=== PATIENT | female | born 1945 | race African-American/Black ===

== ENCOUNTER 2017-02-17 19:53 | Emergency (ER) | payer MEDICARE, OTHER ==
[~2017-02-17] VITALS: Ht 167.6 cm; Wt 106.6 kg
--- NOTE | 2017-02-17 20:05 | NUR ---
PT A/OX4 BREATHING EFFORTLESSLY ON ROOM AIR, PT C/O N/V/D X 3 HOURS WITH A LITTLE ABD PAIN, PT FAMILY AT BEDSIDE, URINE COLLECTED AND SENT TO LAB, IV PLACED LABS DRAWN, PT ON MONITOR, MADE AWARE WILL CONTINUE TO MONITOR.
[2017-02-17] MEDS ORDERED: ONDANSETRON HCL/PF 4 MG/2 ML VIAL ONE (20:20)
[2017-02-17 20:24] LABS: BASOPHILS # (AUTO) 0.4 /CMM (0.0-0.2); BASOPHILS % (AUTO) 3.7 % (0.0-2.0); EOSINOPHILS # (AUTO) 0.2 /CMM (0.0-0.7); EOSINOPHILS % (AUTO) 1.9 % (0.0-6.0); HEMATOCRIT 39 % (33-45); HEMOGLOBIN 12.4 g/dL (11.5-14.8); LYMPHOCYTES # (AUTO) 1.3 /CMM (0.8-4.8); LYMPHOCYTES % (AUTO) 11.7 % (20.0-44.0); MEAN CORPUSCULAR HEMOGLOBIN 27 PG (26.0-33.0); MEAN CORPUSCULAR HGB CONC 32 g/dl (31.0-36.0); MEAN CORPUSCULAR VOLUME 84 fL (82-100); MONOCYTES # (AUTO) 0.6 /CMM (0.1-1.30); MONOCYTES % (AUTO) 5.2 % (2.0-12.0); NEUTROPHILS # (AUTO) 8.2 /CMM (1.8-8.9); NEUTROPHILS % (AUTO) 77.5 % (43.0-81.0); PLATELET COUNT (AUTO) 297 /CMM (150-450); RDW COEFFICIENT OF VARIATION 14.4 (11.5-15.0); RED BLOOD CELL COUNT(AUTO) 4.64 MIL/uL (4.0-5.2); WHITE BLOOD COUNT (AUTO) 10.7 K/uL (4.3-11.0)
[2017-02-17 20:28] LABS: APPEARANCE,URINE Clear (CLEAR); BILIRUBIN,URINE Negative (NEGATIVE); BLOOD, URINE Negative Ery/uL (NEGATIVE); COLOR,URINE Yellow (YELLOW); KETONES,URINE Negative (NEGATIVE); LEUKOCYTE ESTERASE ,URINE Negative (NEGATIVE); NITRITE, URINE Negative (NEGATIVE); PH,URINE 5.5 (5.0-8.0); PROTEIN,URINE 30 mg/dl (NEGATIVE); UGLUCOSE Negative (NEGATIVE); UROBILINOGEN,URINE 0.2 EU/dL (0.2)
[2017-02-17] MEDS ORDERED: ONDANSETRON HCL/PF 4 MG/2 ML VIAL IVP ONE (20:30)
[2017-02-17] MEDS ORDERED: IV NS 0.9% 1,000 ML BAG IV ONE (20:30)
[2017-02-17 20:33] LABS: CALCIUM, SERUM 8.2 mg/dL (8.5-10.1); CREATININE 1.5 mg/dL (0.6-1.3); POTASSIUM 4.4 mmol/L (3.5-5.1)
[2017-02-17 20:39] LABS: ALBUMIN 3.1 g/dL (3.4-5.0); BILIRUBIN,DIRECT 0.1 mg/dL (0.0-0.2); BILIRUBIN,TOTAL 0.4 mg/dL (0.2-1.0); TOTAL PROTEIN, SERUM 6.9 g/dL (6.4-8.2)
[2017-02-17 20:54] LABS: BACTERIA,URINE Rare /HPF (None Seen); RBC,URINE NONE SEEN /HPF (0-2); SQUAMOUS EPITHELIAL CELL,UR Few /HPF (None Seen); WBC,URINE NONE SEEN /HPF (0-3)
[2017-02-17] MEDS ORDERED: ALBUTEROL FS 2.5 MG/3 ML VIAL.NEB ONE (21:26)
[2017-02-17] MEDS ORDERED: ALBUTEROL FS 2.5 MG/3 ML VIAL.NEB NEB ONE (21:30)
[2017-02-17 22:07] VITALS: BP 118/74
--- NOTE | 2017-02-17 22:08 | NUR ---
Patient discharged to home in stable condition. Written and verbal after care instructions given. Patient verbalizes understanding of instruction.IV removed. Catheter intact and site benign. Pressure and 4x4 applied to site. No bleeding noted.
== END 2017-02-17 22:08 | disposition home or self-care (01) ==
LOC: ER 19:54
DX: R11.2 Nausea with vomiting, unspecified (principal); J98.01 Acute bronchospasm; R19.7 Diarrhea, unspecified; I10 Essential (primary) hypertension; K21.9 Gastro-esophageal reflux disease without esophagitis
CPT/HCPCS: 36415; 71010; 80048; 80076; 81001; 83690; 83735; 85025; 93005; 94640; 96361; 96374; 99285; A4606; J2405; J7030 ×2; 81000-TC; Z7610

== ENCOUNTER 2017-07-26 14:11 | Emergency (ER) | payer MEDICARE, OTHER ==
[~2017-07-26] VITALS: Ht 167.6 cm; Wt 90.7 kg
--- NOTE | 2017-07-26 15:25 | NUR ---
AAOX3, BIB FAMILY C/O ABDOMINAL DISCOMFORT AND DIARRHEA SINCE THIS AM. SKIN IS WARM AND DRY. RESP IS EVEN AND UNLABORED WITH NAD NOTED. AWAITING MD FOR EVAL.
[2017-07-26] MEDS ORDERED: ASPIRIN 325 MG TABLET PO ONE (15:30)
[2017-07-26] MEDS ORDERED: ONDANSETRON 4 MG TAB.RAPDIS PO ONE (15:30)
[2017-07-26] MEDS ORDERED: FUROSEMIDE 40 MG/4 ML VIAL IV ONE (15:30)
[2017-07-26] MEDS ORDERED: ONDANSETRON HCL/PF - ER 4 MG/2 ML VIAL IV ONE (15:30)
[2017-07-26 15:31] LABS: BASOPHILS % (AUTO) 0.5 % (0.0-2.0); EOSINOPHILS % (AUTO) 0.4 % (0.0-6.0); HEMATOCRIT 40 % (33-45); HEMOGLOBIN 13.3 g/dL (11.5-14.8); LYMPHOCYTES # (AUTO) 1.4 /CMM (0.8-4.8); MEAN CORPUSCULAR HEMOGLOBIN 28 PG (26.0-33.0); MEAN CORPUSCULAR HGB CONC 34 g/dl (31.0-36.0); MEAN CORPUSCULAR VOLUME 84 fL (82-100); MONOCYTES # (AUTO) 0.6 /CMM (0.1-1.30); MONOCYTES % (AUTO) 7.7 % (2.0-12.0); NEUTROPHILS # (AUTO) 5.6 /CMM (1.8-8.9); NEUTROPHILS % (AUTO) 72.4 % (43.0-81.0); PLATELET COUNT (AUTO) 271 /CMM (150-450); RDW COEFFICIENT OF VARIATION 14.9 (11.5-15.0); RED BLOOD CELL COUNT(AUTO) 4.71 MIL/uL (4.0-5.2); WHITE BLOOD COUNT (AUTO) 7.6 K/uL (4.3-11.0)
[2017-07-26] MEDS ORDERED: HYDROCODONE/APAP 5/325MG 1 EACH TABLET ONE (15:31)
[2017-07-26] MEDS ORDERED: FUROSEMIDE 20 MG/2 ML VIAL ONE (15:31)
[2017-07-26] MEDS ORDERED: ASPIRIN 325 MG TABLET ONE (15:31)
[2017-07-26] MEDS ORDERED: ONDANSETRON HCL/PF 4 MG/2 ML VIAL ONE (15:31)
[2017-07-26] MEDS: HYDROCODONE/APAP 5/325MG 1 EACH TABLET PO ONE ×2 (15:34→15:44)
[2017-07-26 15:41] LABS: CARBON DIOXIDE 30 mmol/L (21-32); CHLORIDE 106 mmol/L (98-107); CREATININE 1.7 mg/dL (0.6-1.3); GLUCOSE 120 mg/dL (74-106); POTASSIUM 3.9 mmol/L (3.5-5.1); SODIUM SERUM 139 mmol/L (136-145); UREA NITROGEN, BLOOD 18 mg/dL (7-18)
[2017-07-26 15:45] LABS: INR 0.94 (0.87-1.13); PROTHROMBIN TIME 9.8 SECS (9.5-12.7)
[2017-07-26 15:48] LABS: TROPONIN I < 0.017 ng/mL (0.00-0.056)
[2017-07-26 15:53] LABS: ALANINE AMINOTRANSFERASE 18 U/L (12-78); ALBUMIN 3.2 g/dL (3.4-5.0); ALKALINE PHOSPHATASE 75 U/L (46-116); ASPARTATE AMINOTRANSFERASE 21 U/L (15-37); B-TYPE NATRIURETIC PEPTIDE 271 PG/ML (0-125); BILIRUBIN,DIRECT 0.1 mg/dL (0.0-0.2); BILIRUBIN,TOTAL 0.3 mg/dL (0.2-1.0); TOTAL PROTEIN, SERUM 7.4 g/dL (6.4-8.2)
--- NOTE | 2017-07-26 18:52 | NUR ---
IV removed. Catheter intact and site benign. Pressure and 4x4 applied to site. No bleeding noted.Patient discharged to home in stable condition. Written and verbal after care instructions given. Patient verbalizes understanding of instruction.
[2017-07-26 18:53] VITALS: BP 114/53
--- NOTE | 2017-07-27 14:25 | NUR ---
LATE ENTRY: NORCO PULLED OUT BY YOSELYN WAS REFUSED AND HE WASTED IT BUT FORGOT TO DOCUMENT IN THE OMNICEL DUE TO A CODE BLUE THAT OCCURED AT THAT TIME
== END 2017-07-26 18:54 | disposition home or self-care (01) ==
LOC: ER 14:13
DX: R60.0 Localized edema (principal); I10 Essential (primary) hypertension; Z86.73 Personal history of transient ischemic attack (TIA), and cerebral infarction without residual deficits; Z90.89 Acquired absence of other organs
CPT/HCPCS: 36415; 71045; 80048; 80076; 83880; 84484; 85025; 85730; 93005; 93970; 96374; 96375; 99285; A4606; J1940; J2405 ×2; Z7610

== ENCOUNTER 2020-11-10 13:22 | Emergency (ER) | payer MEDICARE, OTHER ==
[~2020-11-10] VITALS: Ht 167.6 cm; Wt 113.4 kg
[2020-11-10 13:39] VITALS: BP 155/82
[2020-11-10] MEDS ORDERED: CEPH250C PO (15:01)
--- NOTE | 2020-11-10 15:15 | NUR ---
Patient discharged to home in stable condition. Written and verbal after care instructions given. Patient verbalizes understanding of instruction. The patient left ER in stable condition.
== END 2020-11-10 15:15 | disposition home or self-care (01) ==
LOC: ER 13:24
DX: S61.206A Unspecified open wound of right little finger without damage to nail, initial encounter (principal); I10 Essential (primary) hypertension; Z86.73 Personal history of transient ischemic attack (TIA), and cerebral infarction without residual deficits; Z98.890 Other specified postprocedural states; Z79.899 Other long term (current) drug therapy; W01.0XXA Fall on same level from slipping, tripping and stumbling without subsequent striking against object, initial encounter; Y93.89 Activity, other specified; Y92.89 Other specified places as the place of occurrence of the external cause; Y99.8 Other external cause status
CPT/HCPCS: 73140; 99283; A4649; A6403

== ENCOUNTER 2022-06-23 17:07 | Inpatient (IN) | payer MEDICARE, OTHER ==
[~2022-06-23] VITALS: Ht 162.6 cm; Wt 113.0 kg
[~2022-06-23 17:07] MED LIST: CEPH250C PO
--- NOTE | 2022-06-23 17:13 | NUR ---
MADYSON (GRANDDAUGHTER) [phone]
--- NOTE | 2022-06-23 18:00 | NUR ---
BIBRA FROM HOME, PER EMS. DIARRHEA. PLACED ON BED, AAOX2, BREATHING UNLABORED SATURATING AT 97% WITH 5LIT 02 VIA NC.
--- NOTE | 2022-06-23 18:15 | NUR ---
URINE COLLECTED AND SENT TO LAB
--- NOTE | 2022-06-23 18:15 | NUR ---
COVID SWAB DONE AND SENT TO LAB
--- NOTE | 2022-06-23 18:19 | NUR ---
TAKEN TO CT VIA EV
[2022-06-23 19:27] LABS: BILIRUBIN,URINE NEGATIVE (NEGATIVE); COLOR,URINE YELLOW (YELLOW); LEUKOCYTE ESTERASE ,URINE 2+ (NEGATIVE); NITRITE, URINE NEGATIVE (NEGATIVE); PROTEIN,URINE 1+ mg/dl (NEGATIVE); UGLUCOSE NEGATIVE (NEGATIVE); UROBILINOGEN,URINE 0.2 EU/dL (0.2)
[2022-06-23 19:46] LABS: BACTERIA,URINE Moderate /HPF (None Seen); RBC,URINE 21-50 /HPF (0-2)
[2022-06-23 19:47] LABS: SQUAMOUS EPITHELIAL CELL,UR Moderate /HPF (None Seen); YEAST,URINE Moderate /HPF (None Seen)
[2022-06-23 19:48] LABS: BASOPHILS % (AUTO) 0.3 % (0.0-2.0); EOSINOPHILS % (AUTO) 0.2 % (0.0-6.0); HEMATOCRIT 36 % (33-45); HEMOGLOBIN 11.5 g/dL (11.5-14.8); LYMPHOCYTES # (AUTO) 0.6 K/uL (0.8-4.8); LYMPHOCYTES % (AUTO) 5.3 % (20.0-44.0); MEAN CORPUSCULAR HGB CONC 32 g/dl (31.0-36.0); MEAN CORPUSCULAR VOLUME 89 fL (82-100); MONOCYTES # (AUTO) 0.8 K/uL (0.1-1.30); MONOCYTES % (AUTO) 7.3 % (2.0-12.0); NEUTROPHILS # (AUTO) 9.9 K/uL (1.8-8.9); NEUTROPHILS % (AUTO) 86.9 % (43.0-81.0); PLATELET COUNT (AUTO) 214 K/uL (150-450); RED BLOOD CELL COUNT(AUTO) 4.04 MIL/uL (4.0-5.2); WHITE BLOOD COUNT (AUTO) 11.4 K/uL (4.3-11.0)
[2022-06-23 19:54] LABS: CALCIUM, SERUM 8.9 mg/dL (8.5-10.1); CARBON DIOXIDE 27 mmol/L (21-32); CHLORIDE 107 mmol/L (98-107); CREATININE 1.9 mg/dL (0.6-1.3); GLUCOSE 105 mg/dL (74-106); POTASSIUM 3.7 mmol/L (3.5-5.1); SODIUM SERUM 142 mmol/L (136-145); UREA NITROGEN, BLOOD 30 mg/dL (7-18)
[2022-06-23 20:00] LABS: ALANINE AMINOTRANSFERASE 21 U/L (12-78); ALBUMIN 3.1 g/dL (3.4-5.0); ALKALINE PHOSPHATASE 94 U/L (46-116); ASPARTATE AMINOTRANSFERASE 27 U/L (15-37); BILIRUBIN,DIRECT 0.2 mg/dL (0.0-0.2); BILIRUBIN,TOTAL 0.4 mg/dL (0.2-1.0); TOTAL PROTEIN, SERUM 7.2 g/dL (6.4-8.2)
[2022-06-23] MEDS ORDERED: IV NS 0.9% 1,000 ML BAG IV ONE (20:00)
[2022-06-23] MEDS ORDERED: CEFTRIAXONE 1 G in IV D5W 50 ML IV ONE (20:00)
--- NOTE | 2022-06-23 20:04 | NUR ---
nara Hickey md made aware
[2022-06-23 20:07] LABS: THYROID STIMULATING HORMONE 1.679 uIU/mL (0.358-3.74)
[2022-06-23] MEDS ORDERED: CEFTRIAXONE 1GM BAG (ER ONLY) 50 ML IV ONE (20:08)
--- NOTE | 2022-06-23 20:28 | NUR ---
UPDATED ANI (GRANDDAUGHTER) EMERGENCY CONTACT
--- NOTE | 2022-06-23 20:28 | NUR ---
TITRATED PT O2 FROM N/C 5LPM TO 2LPM. TOLERATING WELL AT 97%. RESP EVEN AND NONLABORED.
--- NOTE | 2022-06-23 20:52 | NUR ---
LAC #20G S/L PATENT AND INTACT. CALLED LAB PT IS READY FOT CTA BRAIN
--- NOTE | 2022-06-23 21:01 | NUR ---
ORAL TEMP 101.1; DR. LETICIA MCDONALD AND SUSANNA SARGENT AWARE. COOLING MEASURES INITIATED
--- NOTE | 2022-06-23 21:03 | NUR ---
PT TAKEN TO CT VIA EV FOR CTA BRAIN
[2022-06-23] MEDS ORDERED: IV NS 0.9% 250 ML IV ONE (21:05)
[2022-06-23] MEDS ORDERED: IOHEXOL-350 100 ML VIAL IV ONE (21:05)
[2022-06-23] MEDS ORDERED: CT SWABBABLE VALVE TRANS SET 1 EA INFUS.SET MC ONE (21:05)
--- NOTE | 2022-06-23 21:26 | NUR ---
PT RETURNED TO ER BED [address]
--- NOTE | 2022-06-23 21:58 | NUR ---
REPORT GIVEN TO JERILYN Orellana RN FOR MORGAN
[2022-06-23] MEDS ORDERED: ASPIRIN 81 MG TAB.CHEW PO ONE (22:00)
[2022-06-23] MEDS ORDERED: ASPIRIN 81 MG TAB.CHEW ONE (22:00)
--- NOTE | 2022-06-23 22:00 | NUR ---
Catherine malik in [facility] - 06/23/22 at 2216 by ANNA PT VOIDED WITH 125ML URINE OUTPUT VIA URINAL
--- NOTE | 2022-06-23 22:05 | NUR ---
FARM MACHINERY ENGINE MECHANIC AT PT'S BEDSIDE
--- NOTE | 2022-06-23 22:15 | NUR ---
Catherine malik in [facility] - 06/23/22 at 2216 by ANNA PT TRANSFERRED TO ICU VIA ACLS PROTOCOL. VSS. CELLPHONE AND BELONGINGS AT PT'S BEDSIDE
[2022-06-23 22:37] VITALS: BP 143/68
[2022-06-23 22:40] VITALS: BP 143/68
--- NOTE | 2022-06-23 22:46 | NUR ---
PT TRANSFERRED TO 3W VIA ACLS PROTOCOL. VSS. ALL BELONGINGS WITH PT.
[2022-06-23] MEDS ORDERED: ACETAMINOPHEN 650 MG/20.3 ML UDC NG ONE (23:00)
--- NOTE | 2022-06-23 23:00 | NUR ---
ADMITTED PATIENT FROM HOME DUE TO DIARRHEA, ALTERED MENTAL STATUS. ALERT/ORIENTED X1, 3LPM VIA NC, NO COMPLAIN OF PAIN, SR ON THE TELE. INCONTINENT OF BOWEL AND BLADDER. NO STOOL ON ADMISSION. SKIN INTACT, LEFT UNDER BREAST RASHES. GIVEN CEFTRIAXONE IN ED. PER FAMILY, BASELINE IS ALERT/ORIENTED X3, ROOM AIR, AMBULATORY, CONTINENT OF BOWEL AND BLADDER.
[2022-06-23] MEDS ORDERED: MAGNESIUM HYDROXIDE 30 ML UDC PO PRN (23:30)
[2022-06-23] MEDS ORDERED: ONDANSETRON HCL/PF 4 MG/2 ML VIAL IVP PRN (23:30)
[2022-06-23] MEDS ORDERED: ZOLPIDEM TARTRATE 5 MG TABLET PO PRN (23:30)
[2022-06-23] MEDS ORDERED: MAG HYDROX/AL HYDROX/SIMETH 30 ML UDC PO PRN (23:30)
[2022-06-23] MEDS ORDERED: Z GUARD REMEDY 4 OZ OINT TP PRN (23:30)
[2022-06-24] VITALS (7 sets, daily range): BP systolic 120–149; BP diastolic 61–77
--- NOTE | 2022-06-24 00:24 | NUR ---
TROPONIN NOW 121 FROM 64, 113 IN ED, NO NEW ORDER, SR 86 ON THE TELE
[2022-06-24] MEDS ORDERED: AZITHROMYCIN 500 MG VIAL ONE (00:31)
[2022-06-24] MEDS: AZITHROMYCIN 500 MG in IV D5W 250 ML IV SCH (00:50)
[2022-06-24] MEDS ORDERED: ESCI10TA PO (04:34)
[2022-06-24] MEDS ORDERED: ARIP2TAB3 PO (04:36)
[2022-06-24] MEDS ORDERED: CARV3.12 PO (04:36)
[2022-06-24] MEDS ORDERED: ATOR20TA PO (04:39)
[2022-06-24] MEDS ORDERED: AMLO5TAB4 PO (04:39)
--- NOTE | 2022-06-24 06:00 | NUR ---
ADMITTED FOR UTI, ALTERED MENTAL STATUS AND PNA, ALERT/ORIENTED X2, 3LPM VIA NC, AFEBRILE, VS STABLE, SR ON THE TELE, REPORTED TO GAS DERRICK OPERATOR SUSANNA TRENDING UP TROPONIN, NO NEW ORDER. GIVEN ZITHROMAX 500 MG IV ON ARRIVAL, NO BM DURING SHIFT, PASSING GAS. PER CT ABDOMEN/PELVIS, NO INTRA ABDOMINAL OR PELVIC PATHOLOGY, CT HEAD NEGATIVE INTRACRANIAL HEMORRHAGE, CXR PNA OR PULMONARY EDEMA, CARDIOMEGALY. UA WITH MODERATE BACTERIA, STARTED ON CEFTRIAXONE IN ED.
[2022-06-24 06:33] LABS: BASOPHILS % (AUTO) 0.3 % (0.0-2.0); EOSINOPHILS % (AUTO) 0.2 % (0.0-6.0); HEMATOCRIT 34 % (33-45); HEMOGLOBIN 10.8 g/dL (11.5-14.8); LYMPHOCYTES # (AUTO) 1.5 K/uL (0.8-4.8); LYMPHOCYTES % (AUTO) 16.7 % (20.0-44.0); MEAN CORPUSCULAR HGB CONC 32 g/dl (31.0-36.0); MEAN CORPUSCULAR VOLUME 90 fL (82-100); MONOCYTES # (AUTO) 0.7 K/uL (0.1-1.30); NEUTROPHILS # (AUTO) 6.8 K/uL (1.8-8.9); NEUTROPHILS % (AUTO) 74.8 % (43.0-81.0); PLATELET COUNT (AUTO) 195 K/uL (150-450); RED BLOOD CELL COUNT(AUTO) 3.72 MIL/uL (4.0-5.2); WHITE BLOOD COUNT (AUTO) 9.1 K/uL (4.3-11.0)
[2022-06-24 06:52] LABS: ALANINE AMINOTRANSFERASE 19 U/L (12-78); ALBUMIN 2.6 g/dL (3.4-5.0); ALKALINE PHOSPHATASE 80 U/L (46-116); ASPARTATE AMINOTRANSFERASE 32 U/L (15-37); BILIRUBIN,DIRECT 0.1 mg/dL (0.0-0.2); BILIRUBIN,TOTAL 0.3 mg/dL (0.2-1.0); CALCIUM, SERUM 8.1 mg/dL (8.5-10.1); CARBON DIOXIDE 25 mmol/L (21-32); CHLORIDE 109 mmol/L (98-107); CREATININE 1.7 mg/dL (0.6-1.3); GLUCOSE 95 mg/dL (74-106); MAGNESIUM 1.9 mg/dL (1.8-2.4); PHOSPHORUS 3.2 mg/dL (2.5-4.9); POTASSIUM 3.9 mmol/L (3.5-5.1); SODIUM SERUM 141 mmol/L (136-145); TOTAL PROTEIN, SERUM 6.3 g/dL (6.4-8.2); UREA NITROGEN, BLOOD 25 mg/dL (7-18)
[2022-06-24 06:54] LABS: CHOLESTEROL 102 mg/dL (<200); HDL CHOLESTEROL 46 mg/dL (40-60); LDL 49 mg/dL (0-99); THYROID STIMULATING HORMONE 1.097 uIU/mL (0.358-3.74); TRIGLYCERIDES 52 mg/dL (30-150)
--- NOTE | 2022-06-24 07:35 | NUR ---
CUSTOMER FACILITIES SUPERVISOR OPENING NOTE RECEIVED PATIENT AMBULATING, AWAKE, ALERT AND ORIENTED X 2, INDIAN SPEAKING WITH EPISODES OF CONFUSION. ON O2 INHALATION @ 3 LPM VIA NASAL CANNULA; TOLERATING WELL WITH SPO2 OF 98%. NOT IN ANY FORM OF RESPIRATORY DISTRESS. ON TELE MONITORING WHICH READS SINUS RHYTHM 82 BPM. WITH IV ACCESS @ LEFT AC G$20, R HAND G#20 PATENT AND INTACT, BOTH FLUSHING WELL. NEEDS ANTICIPATED. SAFETY PRECAUTIONS IN PLACE, CALL LIGHT AND TABLE WITHIN REACH, SIDE RAILS UP X 2, BED IN LOWEST LOCKED POSITION. WILL CONTINUE PLAN OF CARE.
[2022-06-24] MEDS ORDERED: HEPARIN SODIUM, PORCINE 5000 UNITS/1 ML VIAL SQ SCH (09:00)
[2022-06-24] MEDS ORDERED: PANTOPRAZOLE 40 MG VIAL IV SCH (09:00)
[2022-06-24] MEDS: ASPIRIN 81 MG TAB.CHEW PO SCH (09:13)
--- NOTE | 2022-06-24 11:00 | NUR ---
PTT ordered stat. new order to start heparin. lab informed and communicated with pharmacy.
[2022-06-24] MEDS: CEFTRIAXONE 2 G in IV D5W 100 ML IV SCH (11:25)
[2022-06-24] MEDS: FUROSEMIDE 20 MG/2 ML VIAL IV ONE ×2 (11:38→11:42)
--- NOTE | 2022-06-24 11:45 | NUR ---
RN NOTES - SIMA PATIENT IS INSISTING TO GO TO THE REST ROOM, OFFERED SIMA, MJ. EDUCATION PROVIDED REGARDING DIURESIS D/T LASIX.
[2022-06-24] MEDS ORDERED: FUROSEMIDE 20 MG/2 ML VIAL IV ONE (12:00)
--- NOTE | 2022-06-24 12:12 | NUR ---
RN NOTES - HEPARIN APTT, PTT PENDING, PHARMACY WONT RELEASE THE MEDICATION YET. WILL CONTINUE TO FOLLOW UP.
[2022-06-24] MEDS ORDERED: HEPARIN INFUSION/D5W 500 ML IV PRN (13:00)
[2022-06-24] MEDS ORDERED: HEPARIN SODIUM, PORCINE 5000 UNITS/1 ML VIAL IV ONE (13:00)
--- NOTE | 2022-06-24 13:26 | NUR ---
RN NOTES - HEPARIN HEPARIN BOLUS OF 5000 UNITS IV AND HEPARIN 1000 U/HR (20 ML) STARTED PER HEPARIN PROTOCOL. ORDERED PT INR AND APTT AFTER 6 HOURS. WILL ENDORSE TO THE NEXT SHIFT.
[2022-06-24] MEDS: CARVEDILOL 3.125 MG TABLET PO SCH (17:58)
--- NOTE | 2022-06-24 18:05 | NUR ---
RN NOTES -CARVEDILOL 3.25 MG TABLET WONT SCAN - MANUALLY DONE LOT [id number] EXP 10/2023
--- NOTE | 2022-06-24 18:58 | NUR ---
COLLEGE ASSOCIATE CLOSING NOTE PATIENT LYING IN BED AWAKE, ALERT AND ORIENTED X 2-3, WITH SON AND DAUGHTER IN LAW AT BEDSIDE, STATELESS SPEAKING, ON O2 INHALATION @ 3 LPM VIA NASAL CANNULA; TOLERATING WELL WITH SPO2 OF 98%. NOT IN ANY FORM OF RESPIRATORY DISTRESS. ON TELE MONITORING WHICH READS SINUS RHYTHM 82 BPM. WITH IV ACCESS @ LEFT AC G#20 RUNNING HEPARIN 1000 U/HR OR 20 ML/HR. R HAND G#20 PATENT AND INTACT, BOTH FLUSHING WELL. NEEDS ANTICIPATED. I&O STRICTLY OBSERVED AND LOGGED. PATIENT WITH PUREWICK. SAFETY PRECAUTIONS MAINTAINED, CALL LIGHT AND TABLE WITHIN REACH, SIDE RAILS UP X 2, BED IN LOWEST LOCKED POSITION. ENDORSED TO THE SOAKING TANK WORKER NURSE.
--- NOTE | 2022-06-24 19:30 | NUR ---
MANAGER ASSET OPENING NOTE RECEIVED PT AWAKE IN BED. A/O X2-3 AND ABLE TO MAKE NEEDS KNOWN. PT ON O2 @ 3LPM VIA NC, TOLERATING WELL. NO SOB OR S/S OF RESPIRATORY DISTRESS. BREATHING EVEN AND UNLABORED. ON EXTERNAL BILLIARD TABLE REPAIRER READING SR @ 93 BPM. IV ACCESS LAC 20G RUNNING HEPARIN @ 1000 U/HR, PENDING PT/INR RESULTS, AND R HAND 20G SL, INTACT AND PATENT. SAFETY PRECAUTIONS IN PLACE. BED IN LOWEST LOCKED POSITION, HOB ELEVATED, SIDE RAILS UP X3, AND CALL LIGHT AND TABLE WITHIN REACH. ALL NEEDS MET AT THIS TIME.
[2022-06-24] MEDS ORDERED: CEFTRIAXONE 1 G in IV D5W 50 ML IV SCH (20:00)
--- NOTE | 2022-06-24 20:17 | NUR ---
RN NOTE APTT 63.2, PT 11.0, INR 1.05. NO CHANGE PER HEPARIN PROTOCOL. LABS TO BE REDRAWN IN AM. NO S/S OF BLEEDING NOTED. CHARGE NURSE SUMAN AWARE.
[2022-06-24] MEDS: ATORVASTATIN 10 MG TABLET PO SCH (21:01)
[2022-06-24] MEDS ORDERED: ATORVASTATIN 10 MG TABLET PO SCH (22:00)
[2022-06-25] VITALS: BP 157/80
[2022-06-25] MEDS: AZITHROMYCIN 500 MG in IV D5W 250 ML IV SCH (00:06)
[2022-06-25] MEDS: ACETAMINOPHEN 325 MG TABLET PO PRN (00:35)
--- NOTE | 2022-06-25 06:38 | NUR ---
WALL TO WALL CARPET INSTALLER CLOSING NOTE PT AWAKE IN BED. A/O X2-3 AND ABLE TO MAKE NEEDS KNOWN. PT ON O2 @ 3LPM VIA NC, TOLERATING WELL. NO SOB OR S/S OF RESPIRATORY DISTRESS. BREATHING EVEN AND UNLABORED. ON EXTERNAL WEAPONS SYSTEM INSTRUMENT MECHANIC READING SR @ 70 BPM. IV ACCESS LAC 20G RUNNING HEPARIN @ 1000 U/HR, AND R HAND 20G SL, INTACT AND PATENT. ALL DUE MEDS GIVEN ORDERED. TURNED AND REPOSITIONED Q2H. KEPT CLEAN AND DRY. PURWICK IN PLACE, DRAINED 800 ML THIS SHIFT. SAFETY PRECAUTIONS IN PLACE AT ALL TIMES. BED IN LOWEST LOCKED POSITION, HOB ELEVATED, SIDE RAILS UP X3, AND CALL LIGHT AND TABLE WITHIN REACH. ALL NEEDS MET AT THIS TIME AND WILL ENDORSE TO ONCOMING NURSE FOR MORGAN.
[2022-06-25 07:27] LABS: HEMATOCRIT 35 % (33-45); MEAN CORPUSCULAR HGB CONC 32 g/dl (31.0-36.0); MEAN CORPUSCULAR VOLUME 90 fL (82-100); RED BLOOD CELL COUNT(AUTO) 3.85 MIL/uL (4.0-5.2); WHITE BLOOD COUNT (AUTO) 6.4 K/uL (4.3-11.0)
[2022-06-25 07:28] LABS: BASOPHILS % (AUTO) 0.6 % (0.0-2.0); EOSINOPHILS % (AUTO) 1.6 % (0.0-6.0); LYMPHOCYTES # (AUTO) 1.2 K/uL (0.8-4.8); MONOCYTES # (AUTO) 0.5 K/uL (0.1-1.30); NEUTROPHILS # (AUTO) 4.6 K/uL (1.8-8.9); NEUTROPHILS % (AUTO) 71.8 % (43.0-81.0); PLATELET COUNT (AUTO) 195 K/uL (150-450)
--- NOTE | 2022-06-25 07:45 | NUR ---
FILTER HELPER OPENING NOTE RECEIVED PATIENT SLEEPING IN BED, EASILY AWAKENED. ALERT AND ORIENTED X 3, GEORGIAN SPEAKING, ABLE TO MAKE NEEDS KNOWN. PT ON O2 @3LPM VIA NC . NOT RESPIRATORY DISTRESS/SOB NOTED. BREATHING EVEN AND NON-LABORED ON TELE MONITORING WHICH READS SINUS RHYTHM 71 BPM. WITH IV ACCESS @ LEFT AC #20 RUNNING HEPARIN @ 1000 U/HR, R HAND #20, SL PATENT AND INTACT, BOTH FLUSHING WELL. SAFETY PRECAUTIONS IN PLACE. BED IN LOWEST LOCKED POSITION, HOB ELEVATED, SIDE RAILS UP X3, AND CALL LIGHT AND TABLE WITHIN REACH. ALL NEEDS MET AT THIS TIME. WILL CONTINUE TO MONITOR AND ASSIST.
[2022-06-25 08:00] VITALS: BP 137/65
[2022-06-25 08:00] LABS: ALANINE AMINOTRANSFERASE 22 U/L (12-78); ALBUMIN 2.5 g/dL (3.4-5.0); ALKALINE PHOSPHATASE 73 U/L (46-116); ASPARTATE AMINOTRANSFERASE 33 U/L (15-37); BILIRUBIN,TOTAL 0.2 mg/dL (0.2-1.0); CALCIUM, SERUM 8.6 mg/dL (8.5-10.1); CARBON DIOXIDE 28 mmol/L (21-32); CHLORIDE 108 mmol/L (98-107); GLUCOSE 98 mg/dL (74-106); MAGNESIUM 1.8 mg/dL (1.8-2.4); PHOSPHORUS 3.8 mg/dL (2.5-4.9); POTASSIUM 3.5 mmol/L (3.5-5.1); SODIUM SERUM 141 mmol/L (136-145); TOTAL PROTEIN, SERUM 6.4 g/dL (6.4-8.2); UREA NITROGEN, BLOOD 27 mg/dL (7-18)
--- NOTE | 2022-06-25 08:00 | NUR ---
RN NOTE RECEIVED ORDER TO DISCONTINUE HEPARIN DRIP FROM DR. DIETRICH. CARRIED OUT.
[2022-06-25] MEDS: PANTOPRAZOLE 40 MG TABLET.DR PO SCH (09:10)
[2022-06-25] MEDS: CARVEDILOL 3.125 MG TABLET PO SCH ×2 (09:11→16:51)
[2022-06-25] MEDS: ASPIRIN 81 MG TAB.CHEW PO SCH (09:11)
[2022-06-25] MEDS: AMLODIPINE BESYLATE 5 MG TABLET PO SCH (09:11)
[2022-06-25] MEDS: ARIPIPRAZOLE 2 MG TABLET PO SCH (09:15)
--- NOTE | 2022-06-25 09:49 | NUR ---
WOUND CARE CONSULT: PT PRESENTS WITH REDNESS/RASH TO BREASTFOLDS, PRESENT ON ADMISSION. RECOMMENDATIONS MADE FOR SKIN PROTECTION. DISCUSSED WITH NURSING STAFF. MD IN AGREEMENT WITH PLAN OF CARE. PT IS ON FERCHO ISOFLEX LOW AIRLOSS BED. PT IS USING PUREWICK SYSTEM FOR URINARY INCONTINENCE. MD IN AGREEMENT WITH PLAN OF CARE.
[2022-06-25] MEDS: CEFTRIAXONE 2 G in IV D5W 100 ML IV SCH (11:34)
[2022-06-25 12:00] VITALS: BP 113/49
[2022-06-25 16:00] VITALS: BP 131/68
[2022-06-25] MEDS: CLOTRIMAZOLE 1% 15 GM TUBE TP SCH (16:51)
--- NOTE | 2022-06-25 18:35 | NUR ---
CUSHION MAKER HAND CLOSING NOTE PT AWAKE IN BED. A/O X 3 AND ABLE TO MAKE NEEDS KNOWN. PT ON O2 @ 3LPM VIA NC, TOLERATING WELL. NO SOB OR S/S OF RESPIRATORY DISTRESS NOTED AT THIS TIME. BREATHING EVEN AND NON-LABORED. ON EXTERNAL TAGMAN READING SR @ 75 BPM. IV ACCESS LAC 20G AND R HAND 20G SL, INTACT AND PATENT. ALL DUE MEDS GIVEN ORDERED. HEPARIN DISCONTINUED. KEPT CLEAN AND DRY. PUREWICK IN PLACE. SAFETY PRECAUTIONS IN PLACE AT ALL TIMES. BED IN LOWEST LOCKED POSITION, HOB ELEVATED, SIDE RAILS UP X2, CALL LIGHT AND TABLE WITHIN REACH. ALL NEEDS MET AT THIS TIME AND WILL ENDORSE TO NEXT SHIFT FOR MORGAN.
--- NOTE | 2022-06-25 19:30 | NUR ---
RECEIVED PATIENT AWAKE IN BED, ALERT AND ORIENTED X 3, BENINESE SPEAKING, SPEAKS LITTLE PASHTO BUT ABLE TO MAKE NEEDS KNOWN. PT ON O2 @3LPM VIA NC . NO RESPIRATORY DISTRESS/NO SOB NOTED. BREATHING EVEN AND NON-LABORED ON TELE MONITORING WHICH READS SINUS RHYTHM. WITH IV ACCESS @ LEFT AC #20, R HAND #20 BOTH ON SL. PUREWICK IN PLACE. SAFETY PRECAUTIONS IN PLACE. WILL CONTINUE PLAN OF CARE.
[2022-06-25 20:00] VITALS: BP 133/71
[2022-06-25] MEDS: ATORVASTATIN 10 MG TABLET PO SCH (21:20)
[2022-06-26] VITALS: BP 145/77
[2022-06-26 04:00] VITALS: BP 155/84
--- NOTE | 2022-06-26 06:30 | NUR ---
PATIENT AWAKE IN BED, ALERT AND ORIENTED X 3, SAMI SPEAKING, SPEAKS LITTLE WALLISIAN BUT ABLE TO MAKE NEEDS KNOWN. PT ON O2 @3LPM VIA NC . NO RESPIRATORY DISTRESS/NO SOB NOTED. BREATHING EVEN AND NON-LABORED ON TELE MONITORING WHICH READS SINUS RHYTHM. WITH IV ACCESS ON R HAND #20, ON SL. LAC IV ACCESS PULLED OUT BY PT. PRESSURE APPLIED ON SITE. DRESSING PLACED. LT ARM ELEVATED AND APPLIED WARM COMPRESS. PUREWICK IN PLACE. DUE MEDS AND PRN MEDS GIVEN ORDERED AND NEEDED. NEEDS ATTENDED. SAFETY PRECAUTIONS IN PLACE. WILL ENDORSE TO NEXT NURSE ON DUTY FOR CONTINUITY OF CARE.
[2022-06-26 06:50] LABS: BASOPHILS % (AUTO) 0.2 % (0.0-2.0); EOSINOPHILS % (AUTO) 1.7 % (0.0-6.0); HEMATOCRIT 35 % (33-45); HEMOGLOBIN 11.2 g/dL (11.5-14.8); LYMPHOCYTES # (AUTO) 1.3 K/uL (0.8-4.8); MEAN CORPUSCULAR HGB CONC 32 g/dl (31.0-36.0); MEAN CORPUSCULAR VOLUME 89 fL (82-100); MONOCYTES # (AUTO) 0.6 K/uL (0.1-1.30); MONOCYTES % (AUTO) 11.5 % (2.0-12.0); NEUTROPHILS # (AUTO) 2.9 K/uL (1.8-8.9); NEUTROPHILS % (AUTO) 59.6 % (43.0-81.0); PLATELET COUNT (AUTO) 198 K/uL (150-450); RED BLOOD CELL COUNT(AUTO) 3.91 MIL/uL (4.0-5.2); WHITE BLOOD COUNT (AUTO) 4.9 K/uL (4.3-11.0)
--- NOTE | 2022-06-26 07:30 | NUR ---
HVAC MAINTENANCE TECHNICIAN OPENING NOTE RECEIVED PATIENT SLEEPING IN BED, EASILY AWAKENED. A/O X 3, [place] SPEAKING, SPEAKS LITTLE [place] BUT ABLE TO MAKE NEEDS KNOWN. PT ON O2 @3LPM VIA NC. NO S/S OF RESPIRATORY DISTRESS/SOB NOTED AT THIS TIME. BREATHING EVEN AND NON-LABORED ON TELE MONITOR. WITH IV ACCESS R HAND #20G, SL PATENT AND INTACT. PUREWICK IN PLACE. SAFETY PRECAUTIONS IN PLACE. BED IN LOWEST LOCKED POSITION, HOB ELEVATED, SIDE RAILS UP X2, AND CALL LIGHT AND TABLE WITHIN REACH. WILL CONTINUE TO MONITOR AND ASSIST.
[2022-06-26 07:37] LABS: CALCIUM, SERUM 8.2 mg/dL (8.5-10.1); CARBON DIOXIDE 26 mmol/L (21-32); CHLORIDE 108 mmol/L (98-107); CREATININE 1.9 mg/dL (0.6-1.3); GLUCOSE 92 mg/dL (74-106); MAGNESIUM 1.9 mg/dL (1.8-2.4); PHOSPHORUS 3.2 mg/dL (2.5-4.9); POTASSIUM 3.5 mmol/L (3.5-5.1); SODIUM SERUM 143 mmol/L (136-145); UREA NITROGEN, BLOOD 22 mg/dL (7-18)
[2022-06-26 08:00] VITALS: BP 140/81
[2022-06-26] MEDS: hydrALAZINE HCL 50 MG TABLET PO SCH ×3 (09:11→17:07)
[2022-06-26] MEDS: AMLODIPINE BESYLATE 5 MG TABLET PO SCH (09:11)
[2022-06-26] MEDS: PANTOPRAZOLE 40 MG TABLET.DR PO SCH (09:13)
[2022-06-26] MEDS: OSELTAMIVIR PHOSPHATE 75 MG CAPSULE PO SCH ×2 (09:13→17:06)
[2022-06-26] MEDS: CARVEDILOL 3.125 MG TABLET PO SCH ×2 (09:13→17:07)
[2022-06-26] MEDS: CLOTRIMAZOLE 1% 15 GM TUBE TP SCH ×2 (09:15→17:07)
[2022-06-26] MEDS: ASPIRIN 81 MG TAB.CHEW PO SCH (09:15)
[2022-06-26] MEDS: NITROGLYCERIN 30 GM TUBE TP SCH ×2 (09:17→21:47)
[2022-06-26] MEDS: ARIPIPRAZOLE 2 MG TABLET PO SCH (09:18)
[2022-06-26] MEDS: ACETAMINOPHEN 325 MG TABLET PO PRN ×2 (11:42→21:46)
[2022-06-26] MEDS: CEFTRIAXONE 2 G in IV D5W 100 ML IV SCH (11:42)
--- NOTE | 2022-06-26 18:35 | NUR ---
OPTICAL SCIENTIST CLOSING NOTE PT AWAKE IN BED. A/O X 3 AND ABLE TO MAKE NEEDS KNOWN. PT ON O2 @ 3LPM VIA NC, TOLERATING WELL. NO SOB OR S/S OF RESPIRATORY DISTRESS NOTED AT THIS TIME. BREATHING EVEN AND NON-LABORED. PT ON EXTERNAL SANITATION WORKER READING SR @77 BPM. IV ACCESS R HAND 20G SL, INTACT AND PATENT FLUSHING WELL. ALL DUE MEDS GIVEN ORDERED. KEPT CLEAN AND DRY. PUREWICK IN PLACE. SAFETY PRECAUTIONS IN PLACE AT ALL TIMES. BED IN LOWEST LOCKED POSITION, HOB ELEVATED, SIDE RAILS UP X2, CALL LIGHT AND TABLE WITHIN REACH. ALL NEEDS ATTENDED AND ANTICIPATED AT THIS TIME AND WILL ENDORSE TO BEAM BUILDER NURSE FOR MORGAN.
--- NOTE | 2022-06-26 19:30 | NUR ---
LEGAL RECRUITER OPENING NOTE RECEIVED PATIENT AWAKE IN BED. PATIENT IS A/O X 4, ICELANDIC SPEAKER, ABLE TO MAKE NEEDS KNOWN. PT ON ROOM AIR AND TOLERATING WELL. NO S/S OF RESPIRATORY DISTRESS/SOB NOTED AT THIS TIME. BREATHING EVEN AND NON-LABORED ON TELE MONITOR READING SR. IV ACCESS R HAND #20G, SL PATENT AND INTACT. PUREWICK IN PLACE. ALL SAFETY PRECAUTIONS IN PLACE. BED IN LOWEST LOCKED POSITION, HOB ELEVATED, SIDE RAILS UP X2, AND CALL LIGHT AND TABLE WITHIN REACH. WILL CONTINUE TO MONITOR CLOSELY.
[2022-06-26] MEDS: ATORVASTATIN 10 MG TABLET PO SCH (21:46)
--- NOTE | 2022-06-27 06:50 | NUR ---
CLINICAL PROGRAM DIRECTOR CLOSING NOTE PATIENT AWAKE IN BED. PATIENT IS A/O X 4, URDU SPEAKER, ABLE TO MAKE NEEDS KNOWN. PT ON ROOM AIR AND TOLERATING WELL. NO S/S OF RESPIRATORY DISTRESS/SOB NOTED AT THIS TIME. BREATHING EVEN AND NON-LABORED ON TELE MONITOR READING SR. IV ACCESS R HAND #20G, SL PATENT AND INTACT. PUREWICK IN PLACE. ALL SAFETY PRECAUTIONS IN PLACE. ALL DUE MEDS GIVEN ORDERED.BED IN LOWEST LOCKED POSITION, HOB ELEVATED, SIDE RAILS UP X2, AND CALL LIGHT AND TABLE WITHIN REACH. WILL ENDORSE FOR MORGAN.
[2022-06-27 06:55] LABS: BASOPHILS % (AUTO) 0.2 % (0.0-2.0); EOSINOPHILS % (AUTO) 1.4 % (0.0-6.0); HEMATOCRIT 34 % (33-45); HEMOGLOBIN 10.7 g/dL (11.5-14.8); LYMPHOCYTES # (AUTO) 1.5 K/uL (0.8-4.8); LYMPHOCYTES % (AUTO) 33.4 % (20.0-44.0); MEAN CORPUSCULAR HGB CONC 32 g/dl (31.0-36.0); MEAN CORPUSCULAR VOLUME 90 fL (82-100); MONOCYTES # (AUTO) 0.5 K/uL (0.1-1.30); MONOCYTES % (AUTO) 11.8 % (2.0-12.0); NEUTROPHILS # (AUTO) 2.4 K/uL (1.8-8.9); NEUTROPHILS % (AUTO) 53.2 % (43.0-81.0); PLATELET COUNT (AUTO) 205 K/uL (150-450); RED BLOOD CELL COUNT(AUTO) 3.76 MIL/uL (4.0-5.2); WHITE BLOOD COUNT (AUTO) 4.5 K/uL (4.3-11.0)
[2022-06-27 07:00] VITALS: BP 144/72
[2022-06-27 07:22] LABS: CALCIUM, SERUM 8.4 mg/dL (8.5-10.1); CARBON DIOXIDE 25 mmol/L (21-32); CHLORIDE 109 mmol/L (98-107); CREATININE 1.7 mg/dL (0.6-1.3); GLUCOSE 95 mg/dL (74-106); PHOSPHORUS 3.4 mg/dL (2.5-4.9); POTASSIUM 3.5 mmol/L (3.5-5.1); SODIUM SERUM 144 mmol/L (136-145); UREA NITROGEN, BLOOD 21 mg/dL (7-18)
--- NOTE | 2022-06-27 07:52 | NUR ---
RN OPENING NOTE PATIENT AWAKE IN BED RESTING AT THE MOMENT A/O X 4. NO S/S OF PAIN NOTED AT THIS TIME. ON ROOM AIR, NO DISTRESS OR SHORTNESS OF BREATH NOTED. IV ACCESS R HAND, INTACT, PATENT AND FLUSHING WELL. PATIENT HAVE A EXTERNAL ENVIRONMENTAL PROTECTION FORESTER WITH CURRENT READING OF SR. FALL AND SAFETY MEASURES IN PLACE, BED ALARM ON, BED IN LOW AND LOCK POSITION, CALL LIGHT AND TABLE WITHIN EASY REACH, SIDE RAILS X2. WILL CONTINUE TO MONITOR.
[2022-06-27] MEDS: ARIPIPRAZOLE 2 MG TABLET PO SCH (10:19)
[2022-06-27] MEDS: hydrALAZINE HCL 50 MG TABLET PO SCH ×2 (10:19→12:19)
[2022-06-27] MEDS: CARVEDILOL 3.125 MG TABLET PO SCH (10:20)
[2022-06-27] MEDS: PANTOPRAZOLE 40 MG TABLET.DR PO SCH (10:20)
[2022-06-27] MEDS: OSELTAMIVIR PHOSPHATE 75 MG CAPSULE PO SCH (10:20)
[2022-06-27] MEDS: AMLODIPINE BESYLATE 5 MG TABLET PO SCH (10:20)
[2022-06-27] MEDS: ASPIRIN 81 MG TAB.CHEW PO SCH (10:21)
[2022-06-27] MEDS: NITROGLYCERIN 30 GM TUBE TP SCH (10:21)
[2022-06-27] MEDS: CLOTRIMAZOLE 1% 15 GM TUBE TP SCH (10:22)
[2022-06-27] MEDS: CEFTRIAXONE 2 G in IV D5W 100 ML IV SCH (12:16)
[2022-06-27 12:19] VITALS: BP 127/68
--- NOTE | 2022-06-27 15:02 | NUR ---
POCKET STITCHER NOTE PATIENT DISCHARGE IN STABLE MEDICAL CONDITION, A/O X 3-4. V/S TAKEN, STABLE AND RECORDED. NO IV ACCESS, NAME ARM BAND REMOVED. EXTERNAL FILM DEVELOPING MACHINE OPERATOR REMOVED AND RETURNED TO TELE DESK. SKIN ABASEMENT NOT DONE, PATIENT REFUSED. ALL BELONGINGS CHECKED AND LIST SIGNED. HEALTH TEACHING AND DISCAHRGE INSTRUCTIONS GIVEN TO PATIENT AND FAMILY AND VERBALIZED UNDERSTANDING. INSTRUCTED PATIENT TO FOLLOW UP WITH PRIMARY CARE DOCTOR, DISCUSSED PRESCRIPTIONS WITH PATIENT AND FAMILY. INSTRUCTED IN CASE OF EMERGENCY TO CALL 911 OR GO TO NEAREST ER. PATENT LEFT UNIT VIA WHEELCHAIR WITH NO SIGNS OF DISTRESS, ACCOMPANIED BY FIELD TRAFFIC INVESTIGATOR TO THE LOBBY. CHARGE NURSE AWARE OF DISCHARGE.
== END 2022-06-27 15:00 | disposition home health service (06) | DRG 871 ==
LOC: ER 17:38 → TELE 22:22
PROVIDERS: ADMIT Nurse Practitioner Acute Care; ATTEND Nurse Practitioner Acute Care
DX: A41.9 Sepsis, unspecified organism (principal); G93.41 Metabolic encephalopathy; J15.9 Unspecified bacterial pneumonia; I21.A1 Myocardial infarction type 2; N17.0 Acute kidney failure with tubular necrosis; J10.08 Influenza due to other identified influenza virus with other specified pneumonia; I13.0 Hypertensive heart and chronic kidney disease with heart failure and stage 1 through stage 4 chronic kidney disease, or unspecified chronic kidney disease; N39.0 Urinary tract infection, site not specified; Z68.41 Body mass index [BMI] 40.0-44.9, adult; D68.59 Other primary thrombophilia; J98.11 Atelectasis; I50.32 Chronic diastolic (congestive) heart failure; Z20.822 Contact with and (suspected) exposure to COVID-19; Z86.73 Personal history of transient ischemic attack (TIA), and cerebral infarction without residual deficits; Z96.653 Presence of artificial knee joint, bilateral; Z98.890 Other specified postprocedural states; K80.20 Calculus of gallbladder without cholecystitis without obstruction; E66.01 Morbid (severe) obesity due to excess calories; K44.9 Diaphragmatic hernia without obstruction or gangrene; Z74.09 Other reduced mobility; Z87.891 Personal history of nicotine dependence; Z79.82 Long term (current) use of aspirin; B96.89 Other specified bacterial agents as the cause of diseases classified elsewhere; N18.9 Chronic kidney disease, unspecified
CPT/HCPCS: 36415; 70450-TC; 70496-TC; 71045-TC; 76770-TC; 80048-TC; 80053-TC; 80061-TC; 80076-TC; 81001; 83605-TC; 83735-TC; 83880; 84100-TC; 84443-TC; 84484-TC; 85025-TC; 85610-TC; 85730-TC; 86803; 87040-TC; 87081-TC; 87086-TC; 87806; 93307-TC; 94799-TC; 97116-TC; 97530-TC; C9113; C9803; G0378; J0456; J0696; J1644; J1940; J7030; J7050; J7060; Q9967